=== PATIENT | male | born 1950 | race Caucasian/White ===

== ENCOUNTER 2017-02-21 20:45 | Inpatient (IN) | payer MEDICARE, BC ==
--- NOTE | 2017-02-21 21:03 | EDM.PDOC ---
ED HPI GENERAL MEDICAL PROBLEM - General Chief Complaint: General Stated Complaint: tremors/shaking Time Seen by Provider: 02/21/17 20:59 Source of Information: Reports: Patient, Family History Limitations: Reports: No Limitations - History of Present Illness INITIAL COMMENTS - FREE TEXT/NARRATIVE: Patient brought in by after she saw him have generalized tremor (similar to shaking chills) that lasted a few minutes. Interferred with patient's ambulation. Resolved prior to arrival to ER. She was worried and said that she had never seen him do this before. She also notes that his voice is not quite right. Also complains of patient having harder time making decisions/cognitive impairment that has been present for several months. This worsened over the last few days. She has not noted any other obvious problems. Patient himself says that he feels fine other than having a mild sore throat. ROS performed and patient denied all other problems. Family history significant for high cholesterol with father, and DM with mother. Patient was noted to have increasing blood sugars recently. It is of note that he was placed on Crestor this past summer. No recent dose changes. No new supplements or other medications. Right Knee Pain Score (Numeric/FACES): 2 - Related Data Allergies Allergy/AdvReac Type Severity Reaction Status Date / Time No Known Allergies Allergy Verified 02/21/17 21:13 Past Medical History Cardiovascular History: Reports: High Cholesterol Social & Family History - Family History Cardiac: Reports: High Cholesterol Endocrine/Metabolic: Reports: Diabetes, type II ED ROS GENERAL - Review of Systems Review Of Systems: See Below Constitutional: Reports: No Symptoms. Denies: Fever, Chills, Weakness, Fatigue , Night Sweats, Diaphoresis, Decreased Appetite, Weight Loss, Weight Gain HEENT: Reports: Throat Pain. Denies: Dental Pain, Ear Discharge, Ear Pain, Eye Discharge, Rhinitis, Sinus Problem, Throat Swelling, Vertigo, Vision Change Respiratory: Reports: No Symptoms. Denies: Shortness of Breath, Cough Cardiovascular: Reports: No Symptoms GI/Abdominal: Reports: No Symptoms. Denies: Abdominal Pain, Constipation, Diarrhea, Distension, Nausea, Vomiting : Reports: No Symptoms Musculoskeletal: Reports: No Symptoms Skin: Reports: No Symptoms Neurological: Reports: Other ([place] thought patient appeared a bit unsteady compared to usual. Also noted to have some cognitive decline over the past 2-3 months. ) Psychiatric: Denies: Agitation, Anxiety, Depression, Hallucinations, Homicidal Ideation, Mood Lability, Suicidal Ideation Hematologic/Lymphatic: Reports: No Symptoms ED EXAM, GENERAL - Physical Exam Exam: See Below Exam Limited By: No Limitations General Appearance: Alert, WD/WN, No Apparent Distress Eye Exam: Bilateral Eye: EOMI, PERRL Ears: Normal External Exam, Normal Canal, Hearing Grossly Normal, Normal TMs ( right side TM has mildly erythemic edges. No purulence. ) Nose: Normal Inspection Throat/Mouth: Normal Inspection, Normal Lips, Normal Oropharynx, Normal Voice, No Airway Compromise, Other (Wears partial dentures) Head: Atraumatic, Normocephalic Neck: Normal Inspection, Supple, Non-Tender, Full Range of Motion Respiratory/Chest: No Respiratory Distress, Lungs Clear, Normal Breath Sounds, No Accessory Muscle Use, Chest Non-Tender Cardiovascular: No Murmur, Tachycardia Peripheral Pulses: 2+: Radial (L), Radial (R), Dorsalis Pedis (L), Dorsalis Pedis (R) GI/Abdominal: Normal Bowel Sounds, Soft, Non-Tender, No Organomegaly, No Distention, No Mass (Male) Exam: Deferred Rectal (Males) Exam: Deferred Back Exam: Normal Inspection. No: CVA Tenderness (L), CVA Tenderness (R), Muscle Spasm, Paraspinal Tenderness, Vertebral Tenderness Extremities: Normal Inspection, Normal Range of Motion, Non-Tender, Normal Capillary Refill, Pedal Edema (mild, equal, bilateral) Neurological: Alert, Oriented, Normal Cognition (A&Ox4), No Motor/Sensory Deficits, Other (noted to be somewhat unsteady tranfering. ) Psychiatric: Normal Affect, Normal Mood Skin Exam: Warm, Dry, Intact, Normal Color Course - Vital Signs Last Recorded V/S: Last Vital Signs Temp 37.8 C 02/21/17 20:56 Pulse 113 H 02/21/17 20:56 Resp 22 H 02/21/17 20:56 BP 106/68 02/21/17 20:56 Pulse Ox 92 L 02/21/17 20:56 - Orders/Labs/Meds Orders: Active Orders 24 hr Category Date Time Status Chest 2V [CR] Stat Exams 02/21/17 21:41 Taken Head wo Cont [CT] Stat Exams 02/21/17 22:03 Taken CULTURE BLOOD [BC] Stat Lab 02/21/17 21:20 Received CULTURE BLOOD [BC] Stat Lab 02/21/17 21:44 Received CULTURE STREP A CONFIRMATION [RM] Stat Lab 02/21/17 21:41 Results GLYCOSYLATED HEMOGLOBIN,HGBA1C [CHEM] Stat Lab 02/21/17 22:49 Ordered STREP SCRN A RAPID W CULT CONF [RM] Stat Lab 02/21/17 21:41 Results Sodium Chloride 0.9% [Saline Flush] Med 02/21/17 21:12 Active 10 ml FLUSH ASDIRECTED PRN Blood Culture x2 Reflex Set [OM.PC] Stat Oth 02/21/17 21:13 Ordered Saline Lock Insert [OM.PC] Stat Oth 02/21/17 21:12 Ordered Medication Orders Sodium Chloride (Saline Flush) 10 ml FLUSH ASDIRECTED PRN PRN Reason: Keep Vein Open Labs: Laboratory Tests 02/21/17 02/21/17 02/21/17 Range/Units 21:20 21:20 21:20 WBC 12.3 H (4.0-10.2) K/uL RBC 5.27 (4.33-5.41) M/uL Hgb 15.9 (13.1-16.8) g/dL Hct 46.7 (39.0-49.0) % MCV 88.6 (84.0-98.0) fL MCH 30.2 (28.2-33.3) pg MCHC 34.0 (31.7-36.0) g/dL RDW 13.7 (11.2-14.1) % Plt Count 153 (150-350) K/uL Neut % (Auto) 86.8 H (45.0-80.0) % Lymph % (Auto) 4.3 L (10.0-50.0) % Haines % (Auto) 8.5 (2.0-14.0) % Eos % (Auto) 0.2 (0.0-5.0) % Baso % (Auto) 0.2 (0.0-2.0) % Neut # (Auto) 10.71 H (1.40-7.00) K/uL Lymph # (Auto) 0.53 (0.50-3.50) K/uL Haines # (Auto) 1.05 H (0.00-1.00) K/uL Eos # (Auto) 0.02 (0.00-0.50) K/uL Baso # (Auto) 0.02 (0.00-0.20) K/uL Sodium 139 (136-145) mmol/L Potassium 3.9 (3.5-5.1) mmol/L Chloride 103 (98-107) mmol/L Carbon Dioxide 27.2 (21.0-32.0) mmol/L BUN 17 (7-18) mg/dL Creatinine 0.88 (0.51-1.17) mg/dL Est Cr Clr Drug Dosing 89.13 mL/min Estimated GFR (MDRD) > 60 mL/min Glucose 139 H (74-106) mg/dL Lactic Acid 1.7 (0.4-2.0) mmol/L Calcium 8.7 (8.5-10.1) mg/dL Magnesium 1.5 L (1.8-2.4) mg/dL Total Bilirubin 1.0 (0.2-1.0) mg/dL AST 59 H (15-37) U/L ALT 76 (12-78) U/L Alkaline Phosphatase 94 (46-116) IU/L Creatine Kinase (26-308) U/L Total Protein 6.4 (6.4-8.2) g/dL Albumin 3.6 (3.4-5.0) g/dL Vitamin B12 (193-986) pg/mL Specimen Type Urine Color Urine Appearance Urine pH (5.0-9.0) Ur Specific [place] (1.005-1.030) Urine Protein (NEGATIVE) mg/dL Urine Glucose (UA) (NEGATIVE) mg/dL Urine Ketones (NEGATIVE) mg/dL Urine Occult Blood (NEGATIVE) Urine Nitrite (NEGATIVE) Urine Bilirubin (NEGATIVE) Urine Urobilinogen (0.2-1.0) E.U./dL Ur Leukocyte Esterase (NEGATIVE) Urine RBC /HPF Urine WBC /HPF Ur Epithelial Cells /LPF Urine Bacteria (NONE TO FEW) /HPF Urine Mucus (NEGATIVE) /LPF 02/21/17 02/21/17 Range/Units 21:39 22:10 WBC (4.0-10.2) K/uL RBC (4.33-5.41) M/uL Hgb (13.1-16.8) g/dL Hct (39.0-49.0) % MCV (84.0-98.0) fL MCH (28.2-33.3) pg MCHC (31.7-36.0) g/dL RDW (11.2-14.1) % Plt Count (150-350) K/uL Neut % (Auto) (45.0-80.0) % Lymph % (Auto) (10.0-50.0) % Haines % (Auto) (2.0-14.0) % Eos % (Auto) (0.0-5.0) % Baso % (Auto) (0.0-2.0) % Neut # (Auto) (1.40-7.00) K/uL Lymph # (Auto) (0.50-3.50) K/uL Haines # (Auto) (0.00-1.00) K/uL Eos # (Auto) (0.00-0.50) K/uL Baso # (Auto) (0.00-0.20) K/uL Sodium (136-145) mmol/L Potassium (3.5-5.1) mmol/L Chloride (98-107) mmol/L Carbon Dioxide (21.0-32.0) mmol/L BUN (7-18) mg/dL Creatinine (0.51-1.17) mg/dL Est Cr Clr Drug Dosing mL/min Estimated GFR (MDRD) mL/min Glucose (74-106) mg/dL Lactic Acid (0.4-2.0) mmol/L Calcium (8.5-10.1) mg/dL Magnesium (1.8-2.4) mg/dL Total Bilirubin (0.2-1.0) mg/dL AST (15-37) U/L ALT (12-78) U/L Alkaline Phosphatase (46-116) IU/L Creatine Kinase 160 (26-308) U/L Total Protein (6.4-8.2) g/dL Albumin (3.4-5.0) g/dL Vitamin B12 436 (193-986) pg/mL Specimen Type Urinvoid Urine Color Yellow Urine Appearance Clear Urine pH 5.5 (5.0-9.0) Ur Specific [place] 1.020 (1.005-1.030) Urine Protein Negative (NEGATIVE) mg/dL Urine Glucose (UA) Negative (NEGATIVE) mg/dL Urine Ketones Negative (NEGATIVE) mg/dL Urine Occult Blood Negative (NEGATIVE) Urine Nitrite Negative (NEGATIVE) Urine Bilirubin Negative (NEGATIVE) Urine Urobilinogen 0.2 (0.2-1.0) E.U./dL Ur Leukocyte Esterase Negative (NEGATIVE) Urine RBC 0-5 /HPF Urine WBC 0-5 /HPF Ur Epithelial Cells Few /LPF Urine Bacteria Rare (NONE TO FEW) /HPF Urine Mucus Few H (NEGATIVE) /LPF Meds: Medications Generic Name Dose Route Start Last Admin Trade Name Freq PRN Reason Stop Dose Admin Sodium Chloride 10 ml 02/21/17 21:12 Saline Flush FLUSH ASDIRECTED PRN Keep Vein Open - Radiology Interpretation Free Text/Narrative:: chest xray: no noted acute infiltrates/changes CT Results Date: 02/21/17 CT Results Time: 23:04 (Negative head CT) - Re-Assessments/Exams Free Text/Narrative Re-Assessment/Exam: 02/21/17 22:04 Initial labs drawn. Mild increase in WBC. Exam overall non-focal. CT of head ordered given progressive cognitive changes that have been observed. Vital signs stable, however patient noted to be mildly tachy. O2 sats on room air 92%. Patient denies any respiratory complaints/shortness of breath/chest pain. Long history of smoking. 02/21/17 22:53 Patient admitted for cognitive changes/altered mental status. Cannot rule out other acute process, such as viral illness or other infection given mild elevation of WBC and complaint of sore throat. Rapid strep negative. Magnesium low, glucose mildly elevated. Cannot rule out Crestor as cause of patient's progressive cognitive changes. Episode of shakiness that observed earlier could be due to oncoming illness , however Crestor can also cause musculoskeletal issues. Will have patient DC Crestor at this time. Plan to have PT/OT evaluate patient tomorrow. Will observe for changes over the next few days. Consider MRI imaging tomorrow if space available. Antibiotics not indicated at this time. Departure - Departure Time of Disposition: 22:58 Disposition: Admitted As Inpatient 67 Condition: Good Clinical Impression: Cognitive changes, General unsteadiness, Hyperglycemia, Hypomagnesemia, Former smoker Elevated white blood cell count, unspecified Qualifiers: Leukocytosis type: unspecified Qualified Code(s): D72.829 - Elevated white blood cell count, unspecified - Discharge Information Referrals: Yaneth Loza PA [Primary Care Provider] - Forms: ED Department Discharge - Problem List & Annotations (1) Cognitive changes SNOMED Code(s): 970285222 Code(s): R41.89 - OTH SYMPTOMS AND SIGNS W COGNITIVE FUNCTIONS AND AWARENESS Status: Acute Priority: High Current Visit: Yes Onset Date: Unknown Annotation/Comment:: 2-3 month history of general mild cognitive decline. Uncertain etiology. Negative head CT this evening. Did start Crestor this past summer and this medication has been associated with cognitive problems. Plan to discontinue medication for now. (2) General unsteadiness SNOMED Code(s): 712384082 Code(s): R26.81 - UNSTEADINESS ON FEET Status: Acute Priority: High Current Visit: Yes Annotation/Comment:: Mild unsteadiness. does not feel safe having patient at home. (3) Hyperglycemia SNOMED Code(s): 81509854 Code(s): R73.9 - HYPERGLYCEMIA, UNSPECIFIED Status: Acute Priority: Low Current Visit: Yes Annotation/Comment:: says patient's blood sugars have been creeping up. No formal workup as of yet. Will begin bedside glucose checks as well as order A1c. (4) Hypomagnesemia SNOMED Code(s): 820854699 Code(s): E83.42 - HYPOMAGNESEMIA Status: Acute Priority: Low Current Visit: Yes (5) Elevated white blood cell count, unspecified SNOMED Code(s): 962918419 Code(s): D72.829 - ELEVATED WHITE BLOOD CELL COUNT, UNSPECIFIED Status: Acute Priority: Medium Current Visit: Yes Onset Date: ~02/21/17 Annotation/Comment:: mild elevation at 12.3 increase in neutrophils. Uncertain etiology. Patient may be developing early viral syndrome given mild sore throat. Will observe for changes. Qualifiers: Leukocytosis type: unspecified Qualified Code(s): D72.829 - Elevated white blood cell count, unspecified (6) Former smoker SNOMED Code(s): 6681277 Code(s): Z87.891 - PERSONAL HISTORY OF NICOTINE DEPENDENCE Status: Chronic Priority: Low Current Visit: Yes Annotation/Comment:: Patient suspected to have mild COPD given long smoking history. Will observe for changes and initiate neb treatments while inpatient. - Problem List Review Problem List Initiated/Reviewed/Updated: Yes - My Orders Last 24 Hours: My Active Orders 02/21/17 21:12 Sodium Chloride 0.9% [Saline Flush] 10 ml FLUSH ASDIRECTED PRN Saline Lock Insert [OM.PC] Stat 02/21/17 21:13 Blood Culture x2 Reflex Set [OM.PC] Stat 02/21/17 21:20 CULTURE BLOOD [BC] Stat 02/21/17 21:41 Chest 2V [CR] Stat CULTURE STREP A CONFIRMATION [RM] Stat STREP SCRN A RAPID W CULT CONF [RM] Stat 02/21/17 21:44 CULTURE BLOOD [BC] Stat 02/21/17 22:03 Head wo Cont [CT] Stat 02/21/17 22:49 GLYCOSYLATED HEMOGLOBIN,HGBA1C [CHEM] Stat - Assessment/Plan Admission H&P: Please use this note as an admission H&P Last 24 Hours: My Active Orders 02/21/17 21:12 Sodium Chloride 0.9% [Saline Flush] 10 ml FLUSH ASDIRECTED PRN Saline Lock Insert [OM.PC] Stat 02/21/17 21:13 Blood Culture x2 Reflex Set [OM.PC] Stat 02/21/17 21:20 CULTURE BLOOD [BC] Stat 02/21/17 21:41 Chest 2V [CR] Stat CULTURE STREP A CONFIRMATION [RM] Stat STREP SCRN A RAPID W CULT CONF [RM] Stat 02/21/17 21:44 CULTURE BLOOD [BC] Stat 02/21/17 22:03 Head wo Cont [CT] Stat 02/21/17 22:49 GLYCOSYLATED HEMOGLOBIN,HGBA1C [CHEM] Stat Assessment:: as above Plan: as above
[2017-02-21 21:42] LABS: CHLORIDE,CL 103 mmol/L (98-107); SODIUM,NA 139 mmol/L (136-145)
[2017-02-21] MEDS ORDERED: Acetaminophen 325 MG Tab PO ONE (23:26)
[2017-02-21] MEDS ORDERED: Promethazine 25 MG/ML SDV IM PRN (23:56)
[2017-02-21] MEDS: cefTRIAXone 1 GM in Sodium Chloride 0.9% 100 ML IV SCH (23:56)
[2017-02-21] MEDS ORDERED: Promethazine 25 MG Tab PO PRN (23:56)
[2017-02-21] MEDS ORDERED: Bisacodyl 5 MG Tab PO PRN (23:56)
[2017-02-22] MEDS: Azithromycin 500 MG in Sodium Chloride 0.9% 250 ML IV SCH ×2 (00:01→22:56)
[2017-02-22] MEDS: Albuterol/Ipratropium 3.0-0.5 MG/3 ML Neb Soln NEB SCH ×4 (01:52→20:01)
[2017-02-22] MEDS: Sodium Chloride 0.9% 10 ML Syringe FLUSH PRN ×2 (01:56→22:59)
[2017-02-22] MEDS: Magnesium Oxide 400 MG Tab PO SCH (07:23)
[2017-02-22] MEDS: Enoxaparin 40 MG/0.4 ML Syringe SUBCUT SCH (07:23)
[2017-02-22] MEDS: Acetaminophen 325 MG Tab PO PRN ×2 (07:43→20:07)
[2017-02-22 08:28] LABS: CHLORIDE,CL 103 mmol/L (98-107); SODIUM,NA 138 mmol/L (136-145)
[2017-02-22] MEDS ORDERED: Loperamide 2 MG Tab PO PRN (14:00)
--- NOTE | 2017-02-22 15:01 | PCM.PN ---
- General Info Date of Service: 02/22/17 Admission Dx/Problem (Free Text): Admitted for cognitive changes, general unsteadiness as reported by patient's . Patient himself was without complaint except for mild sore throat. Noted in ER to be mildly tachycardic with WBC 12.3 Suspected probable early viral syndrome. In addition, cognitive changes have been present for several months, with some noted worsening over the previous few days. [place] that there could be link with cognitive changes with being started on Crestor last summer, with possible acute worsening secondary to oncoming infection. Noted to spike temp shortly after being moved from ER to [facility] bed. This was accompanied by lower BP of 95/61, heart rate of 102, respiratory rate of 24, and room O2 sat of 89%. Given the sudden change, IV Rocephin and Zithromax were initiated, along with NC O2 at 2L. No specific pneumonia identified during ER workup. Subjective Update: Patient feels fine and denies having any complaints at this time. Functional Status: Reports: Pain Controlled, Tolerating Diet, Ambulating ( improved today). Denies: New Symptoms Pain Score: 0 - Review of Systems General: Reports: No Symptoms HEENT: Reports: No Symptoms Pulmonary: Reports: No Symptoms Cardiovascular: Reports: No Symptoms Gastrointestinal: Reports: No Symptoms Genitourinary: Reports: No Symptoms Musculoskeletal: Reports: No Symptoms Neurological: Reports: No Symptoms (Denies any acute changes) Psychiatric: Reports: No Symptoms - Patient Data Vitals - Most Recent: Last Vital Signs Temp 37.0 C 02/22/17 11:09 Pulse 88 02/22/17 11:09 Resp 18 02/22/17 11:09 BP 96/77 02/22/17 11:09 Pulse Ox 97 02/22/17 11:09 Weight - Most Recent: 114.714 kg I&O - Last 24 Hours: Intake & Output 02/22/17 02/22/17 02/22/17 06:59 14:59 22:59 Intake Total 590 1170 Output Total 250 Balance 340 1170 Lab Results Last 24 Hours: Laboratory Results - last 24 hr 02/22/17 02/22/17 02/22/17 Range/Units 07:05 07:05 07:05 WBC 14.1 H (4.0-10.2) K/uL RBC 5.00 (4.33-5.41) M/uL Hgb 14.9 (13.1-16.8) g/dL Hct 44.0 (39.0-49.0) % MCV 88.0 (84.0-98.0) fL MCH 29.8 (28.2-33.3) pg MCHC 33.9 (31.7-36.0) g/dL RDW 13.7 (11.2-14.1) % Plt Count 113 L (150-350) K/uL Neut % (Auto) 84.9 H (45.0-80.0) % Lymph % (Auto) 5.4 L (10.0-50.0) % [place] % (Auto) 9.6 (2.0-14.0) % Eos % (Auto) 0.0 (0.0-5.0) % Baso % (Auto) 0.1 (0.0-2.0) % Neut # (Auto) 11.99 H (1.40-7.00) K/uL Lymph # (Auto) 0.77 (0.50-3.50) K/uL [place] # (Auto) 1.36 H (0.00-1.00) K/uL Eos # (Auto) 0.00 (0.00-0.50) K/uL Baso # (Auto) 0.01 (0.00-0.20) K/uL Sodium 138 (136-145) mmol/L Potassium 3.6 (3.5-5.1) mmol/L Chloride 103 (98-107) mmol/L Carbon Dioxide 25.7 (21.0-32.0) mmol/L BUN 13 (7-18) mg/dL Creatinine 0.79 (0.51-1.17) mg/dL Est Cr Clr Drug Dosing 98.88 mL/min Estimated GFR (MDRD) > 60 mL/min Glucose 149 H (74-106) mg/dL POC Glucose (65-110) mg/dl Hemoglobin A1c 6.7 H (4.3-5.7) % Lactic Acid (0.4-2.0) mmol/L Calcium 8.6 (8.5-10.1) mg/dL Total Bilirubin 1.4 H (0.2-1.0) mg/dL AST 49 H (15-37) U/L ALT 79 H (12-78) U/L Alkaline Phosphatase 79 (46-116) IU/L Total Protein 5.9 L (6.4-8.2) g/dL Albumin 3.1 L (3.4-5.0) g/dL 02/22/17 02/22/17 02/22/17 Range/Units 07:05 07:08 11:12 WBC (4.0-10.2) K/uL RBC (4.33-5.41) M/uL Hgb (13.1-16.8) g/dL Hct (39.0-49.0) % MCV (84.0-98.0) fL MCH (28.2-33.3) pg MCHC (31.7-36.0) g/dL RDW (11.2-14.1) % Plt Count (150-350) K/uL Neut % (Auto) (45.0-80.0) % Lymph % (Auto) (10.0-50.0) % [place] % (Auto) (2.0-14.0) % Eos % (Auto) (0.0-5.0) % Baso % (Auto) (0.0-2.0) % Neut # (Auto) (1.40-7.00) K/uL Lymph # (Auto) (0.50-3.50) K/uL [place] # (Auto) (0.00-1.00) K/uL Eos # (Auto) (0.00-0.50) K/uL Baso # (Auto) (0.00-0.20) K/uL Sodium (136-145) mmol/L Potassium (3.5-5.1) mmol/L Chloride (98-107) mmol/L Carbon Dioxide (21.0-32.0) mmol/L BUN (7-18) mg/dL Creatinine (0.51-1.17) mg/dL Est Cr Clr Drug Dosing mL/min Estimated GFR (MDRD) mL/min Glucose (74-106) mg/dL POC Glucose 135 H 96 (65-110) mg/dl Hemoglobin A1c (4.3-5.7) % Lactic Acid 1.5 (0.4-2.0) mmol/L Calcium (8.5-10.1) mg/dL Total Bilirubin (0.2-1.0) mg/dL AST (15-37) U/L ALT (12-78) U/L Alkaline Phosphatase (46-116) IU/L Total Protein (6.4-8.2) g/dL Albumin (3.4-5.0) g/dL Med Orders - Current: Current Medications Acetaminophen (Tylenol) 650 mg PO Q6H PRN PRN Reason: Pain (Mild 1-3)/fever Last Admin: 02/22/17 07:43 Dose: 650 mg Albuterol/Ipratropium (Duoneb 3.0-0.5 Mg/3 Ml) 3 ml NEB Q6HRRT [facility] Last Admin: 02/22/17 13:39 Dose: 3 ml Bisacodyl (Dulcolax) 5 mg PO DAILY PRN PRN Reason: Constipation Coenzyme Q10 (Coenzyme Q10) 100 mg PO DAILY [facility] Last Admin: 02/22/17 07:23 Dose: 100 mg Enoxaparin Sodium (Lovenox) 40 mg SUBCUT DAILY [facility] Last Admin: 02/22/17 07:23 Dose: 40 mg Azithromycin 500 mg/ Sodium (Chloride) 250 mls @ 250 mls/hr IV Q24H [facility] Last Admin: 02/22/17 00:01 Dose: 250 mls/hr Ceftriaxone Sodium 1 gm/ (Sodium Chloride) 100 mls @ 200 mls/hr IV Q24H [facility] Last Admin: 02/21/17 23:56 Dose: 200 mls/hr Loperamide HCl (Imodium Ad) 2 mg PO Q4H PRN PRN Reason: Diarrhea Last Admin: 02/22/17 13:39 Dose: 2 mg Magnesium Oxide (Magnesium Oxide) 400 mg PO DAILY [facility] Last Admin: 02/22/17 07:23 Dose: 400 mg Promethazine HCl (Phenergan) 25 mg PO Q6H PRN PRN Reason: nausea, able to take PO Promethazine HCl (Phenergan) 6.25 mg IM Q6H PRN PRN Reason: Nausea/Vomiting Sodium Chloride (Saline Flush) 10 ml FLUSH ASDIRECTED PRN PRN Reason: Keep Vein Open Last Admin: 02/22/17 01:56 Dose: 10 ml Discontinued Medications Acetaminophen (Tylenol) 650 mg PO NOW ONE Stop: 02/21/17 23:27 Last Admin: 02/21/17 23:56 Dose: 650 mg - Exam Quality Assessment: Supplemental Oxygen General: Alert, Oriented, Cooperative, No Acute Distress HEENT: Pupils Equal, Pupils Reactive, EOMI, Mucous Membr. Moist/[employer] Neck: Supple Lungs: Clear to Auscultation, Normal Respiratory Effort Cardiovascular: Regular Rate, Regular Rhythm GI/Abdominal Exam: Normal Bowel Sounds, Soft, Non-Tender, No Distention (Male) Exam: Deferred Back Exam: Normal Inspection Extremities: Normal Inspection, Normal Range of Motion, Non-Tender, Normal Capillary Refill Peripheral Pulses: 2+: Radial (L), Radial (R) Skin: Warm, Dry, Intact Neurological: No New Focal Deficit Psy/Mental Status: Alert, Normal Affect, Normal Mood, Other (Patient answers all questions appropriately. ) - Problem List & Annotations (1) Cognitive changes SNOMED Code(s): 317711793 Code(s): R41.89 - OTH SYMPTOMS AND SIGNS W COGNITIVE FUNCTIONS AND AWARENESS Status: Acute Priority: High Current Visit: Yes Onset Date: Unknown Annotation/Comment:: 2-3 month history of general mild cognitive decline. Uncertain etiology. Negative head CT this evening. Did start Crestor this past summer and this medication has been associated with cognitive problems. Plan to discontinue medication for now. Noted by nursing staff to not listen when asked to obtain assistance with ambulation and transfers. He did do poorly when showering on own, unable to clean self very well. (2) General unsteadiness SNOMED Code(s): 626666221 Code(s): R26.81 - UNSTEADINESS ON FEET Status: Acute Priority: High Current Visit: Yes Annotation/Comment:: Mild unsteadiness. does not feel safe having patient at home. Improvement noted today per staff (3) Hyperglycemia SNOMED Code(s): 27912978 Code(s): R73.9 - HYPERGLYCEMIA, UNSPECIFIED Status: Acute Priority: Low Current Visit: Yes Annotation/Comment:: Elevated Hgb A1c at 6.7 (4) Hypomagnesemia SNOMED Code(s): 492406828 Code(s): E83.42 - HYPOMAGNESEMIA Status: Acute Priority: Low Current Visit: Yes Annotation/Comment:: On Mag Oxide (5) Elevated white blood cell count, unspecified SNOMED Code(s): 177063278 Code(s): D72.829 - ELEVATED WHITE BLOOD CELL COUNT, UNSPECIFIED Status: Acute Priority: Medium Current Visit: Yes Onset Date: ~02/21/17 Qualifiers: Leukocytosis type: unspecified Qualified Code(s): D72.829 - Elevated white blood cell count, unspecified Annotation/Comment:: Increase to 14.1 today. Uncertain etiology. Patient may have been developing early viral syndrome when evaluated in ER. No other specific changes noted since admission other than observed temp spike last evening. Is being covered with Rocephin and Zithromax. No noted pneumonia on chest xray. It was relayed to us today that patient's now feels ill. No specifics are known, but this may indicate further that patient may be likely experiencing a viral illness. (6) Former smoker SNOMED Code(s): 1542569 Code(s): Z87.891 - PERSONAL HISTORY OF NICOTINE DEPENDENCE Status: Chronic Priority: Low Current Visit: Yes Annotation/Comment:: Patient suspected to have mild COPD given long smoking history. Will observe for changes and initiate neb treatments while inpatient. - Problem List Review Problem List Initiated/Reviewed/Updated: Yes - My Orders Last 24 Hours: My Active Orders 02/21/17 23:00 Azithromycin [Zithromax] 500 mg Sodium Chloride 0.9% [Normal Saline] 250 ml IV Q24H 02/21/17 23:28 RT Aerosol Therapy [RC] 02,08,14,20 02/21/17 23:29 Telemetry Monitoring [Cardiac Monitoring] [RC] Q2HR 02/21/17 23:56 Blood Glucose Check, Bedside [RC] QIDACANDBED Up With Assistance [RC] ASDIRECTED Acetaminophen [Tylenol] 650 mg PO Q6H PRN Bisacodyl [Dulcolax] 5 mg PO DAILY PRN Promethazine [Phenergan] 25 mg PO Q6H PRN Promethazine [Phenergan] 6.25 mg IM Q6H PRN Resuscitation Status Routine 02/22/17 00:00 cefTRIAXone [Rocephin] 1 gm Sodium Chloride 0.9% [Normal Saline] 100 ml IV Q24H 02/22/17 00:02 Patient Status [ADT] Routine Oxygen Therapy [RC] 2300 VTE/DVT Education [RC] PER UNIT ROUTINE Vital Signs [RC] Q4HR 02/22/17 00:03 Intake and Output [RC] QSHIFT Pulse Oximetry [RC] PRN Antiembolic Hose [OM.PC] Per Unit Routine 02/22/17 00:04 Antiembolic Devices [RC] 08,20 02/22/17 02:00 Albuterol/Ipratropium [DuoNeb 3.0-0.5 MG/3 ML] 3 ml NEB Q6HRRT 02/22/17 08:00 Enoxaparin [Lovenox] 40 mg SUBCUT DAILY Magnesium Oxide 400 mg PO DAILY Ubidecarenone [Coenzyme Q10] 100 mg PO DAILY 02/22/17 14:00 Loperamide [Imodium AD] 2 mg PO Q4H PRN 02/22/17 23:56 OT Evaluation and Treatment [CONS] Routine PT Evaluation and Treatment [CONS] Routine 02/23/17 Breakfast [place] [employer] Diet [DIET] - Assessment Assessment:: Fever, unsteadiness, worsening cognition, mild sore throat. Continue to suspect viral cause but patient is being covered with Rocephin and Zithro due to sudden temp spike/hypotenstion/lower sats noted last night. Vital signs have been stable today, patient without complaint and would like to go home. now ill and at home, uncertain what specific symptoms she is experiencing. Total protein, platelets, albumin have decreased, suspect in large part dilutional. Mild increase WBC. AST/ALT very mildly elevated. Cognition issues have been going on for a number of months. Staff agree that there is a feeling that patient is having some level of cognitive impairment based on interactions with patient, even though he answers questions appropriately and is found to be A&O x3. - Plan Plan:: Continue IV antibiotics, PT/OT and observe for additional changes. Suspect patient will need further evaluation as outpatient for cognition issues. Will have case management follow patient. If no additional problems are encountered , and patient is cleared by PT/OT, patient may be discharged home tomorrow with continuation of outpatient antibiotics.
[2017-02-22] MEDS ORDERED: Brimonidine 0.2% Ophth Soln 5 ML Bottle EYEBOTH SCH (18:00)
[2017-02-22] MEDS ORDERED: Timolol Maleate 0.5% Ophth Soln 5 ML Bottle EYEBOTH SCH (18:00)
[2017-02-22] MEDS ORDERED: Iopamidol 755 Mg/ML 100 ML Bottle IVPUSH ONE (19:30)
[2017-02-22] MEDS: Brimonidine 0.2% Ophth Soln 5 ML Bottle EYEBOTH SCH (20:00)
[2017-02-22] MEDS: Timolol Maleate 0.5% Ophth Soln 5 ML Bottle EYEBOTH SCH (20:01)
[2017-02-22] MEDS: cefTRIAXone 1 GM in Sodium Chloride 0.9% 100 ML IV SCH (23:01)
[2017-02-23] MEDS: Albuterol/Ipratropium 3.0-0.5 MG/3 ML Neb Soln NEB SCH ×3 (01:44→13:49)
[2017-02-23] MEDS: Acetaminophen 325 MG Tab PO PRN (04:17)
[2017-02-23 07:40] LABS: CHLORIDE,CL 105 mmol/L (98-107); SODIUM,NA 139 mmol/L (136-145)
[2017-02-23] MEDS ORDERED: Calcium Carbonate/Vitamin D3 1500 MG-400 Units Tab PO SCH (08:00)
[2017-02-23] MEDS: Brimonidine 0.2% Ophth Soln 5 ML Bottle EYEBOTH SCH (08:45)
[2017-02-23] MEDS: Timolol Maleate 0.5% Ophth Soln 5 ML Bottle EYEBOTH SCH (08:46)
[2017-02-23] MEDS: Enoxaparin 40 MG/0.4 ML Syringe SUBCUT SCH (08:46)
[2017-02-23] MEDS: Magnesium Oxide 400 MG Tab PO SCH (08:46)
--- NOTE | 2017-02-23 15:24 | PCM.DCSUM1 ---
Discharge Summary - Hospital Course Brief History: Patient admitted for observed mild increased cognitive changes, episode of shaking chills, sore throat. - Discharge Data Discharge Date: 02/23/17 Discharge Disposition: Home, Self-Care 01 Condition: Good - Discharge Diagnosis/Problem(s) (1) Cognitive changes SNOMED Code(s): 317649070 ICD Code: R41.89 - OTH SYMPTOMS AND SIGNS W COGNITIVE FUNCTIONS AND AWARENESS Status: Acute Priority: High Current Visit: Yes Onset Date: Unknown Problem Details: 2-3 month history of general mild cognitive decline. Uncertain etiology. Negative head CT. Did start Crestor this past summer and this medication has been associated with cognitive problems. Plan to discontinue medication for now. No severe problems noted while inpatient. (2) General unsteadiness SNOMED Code(s): 406859187 ICD Code: R26.81 - UNSTEADINESS ON FEET Status: Acute Priority: High Current Visit: Yes Problem Details: improved. (3) Hyperglycemia SNOMED Code(s): 42926307 ICD Code: R73.9 - HYPERGLYCEMIA, UNSPECIFIED Status: Acute Priority: Low Current Visit: Yes Problem Details: Elevated Hgb A1c at 6.7 (4) Hypomagnesemia SNOMED Code(s): 503329250 ICD Code: E83.42 - HYPOMAGNESEMIA Status: Acute Priority: Low Current Visit: Yes Problem Details: On Mag Oxide (5) Elevated white blood cell count, unspecified SNOMED Code(s): 590643472 ICD Code: D72.829 - ELEVATED WHITE BLOOD CELL COUNT, UNSPECIFIED Status: Acute Priority: Medium Current Visit: Yes Onset Date: ~02/21/17 Problem Details: Has normalized Qualifiers: Leukocytosis type: unspecified Qualified Code(s): D72.829 - Elevated white blood cell count, unspecified (6) Former smoker SNOMED Code(s): 0123459 ICD Code: Z87.891 - PERSONAL HISTORY OF NICOTINE DEPENDENCE Status: Chronic Priority: Low Current Visit: Yes Problem Details: Patient suspected to have mild COPD given long smoking history. Will observe for changes and initiate neb treatments while inpatient. 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 Immediate improvement once he is up and moving, sats return to high 90s. Recommend outpatient sleep study be arranged and consider night time O2. Patient to follow up with primary provider tomorrow to expedite this. - Patient Summary/Data Complications: none Consults: Consultations 02/22/17 15:26 Consult to Care Management [Consult to Case Management] [CONS] Routine 02/22/17 23:56 OT Evaluation and Treatment [CONS] Routine PT Evaluation and Treatment [CONS] Routine Hospital Course: Patient admitted from ER for above complaint. Shortly thereafter developed 103 fever. Was noted to have sats in low 90s. IV antibiotics to cover for potential pneumonia initiated. Patient was without complaint the following day. Noted to have mild elevation WBC. This normalized. ALT/AST began to elevate, as did total Bili. Bili has now normalized but ALT/AST still increased. Suspect due to viral illness patient is suspected to have. Sore throat resolved. It was noted that his developed illness consistent with viral gastroenteritis the morning following patient's admission. Suspect that they likely have a shared illness. Blood sugars persistently elevated. Patient developed loose stools after admission. Patient did show pattern of consistent oxygen desaturation any time he was laying flat sleeping. Sats would dip into 80s at time. This would immediately reverse once he was sitting up/standing and moving about. Sats would then approach 100%. 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 Discussed with patient and that he would benefit from sleep study and may need night time O2 depending on results of study. It was recommended that they schedule this as soon as possible. The reported cognition changes were not noted to be significant while patient observed by staff. Could consider Crestor as well as sleep apnea as possibly contributing towards this complaint. Will discharge patient on outpatient Zithromax to be taken for the next few days. He is to follow up tomorrow with primary provider concerning all of the above. Will need recheck of ALT/ALT within next week or so. Patient is agreeable with plan. - Patient Instructions Diet: Usual Diet as Tolerated Activity: As Tolerated Driving: May Drive Today Showering/Bathing: May Shower Other/Special Instructions: Follow up tomorrow at schedule appointment. 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 Remember to discuss a sleep study at clinic appointment tomorrow. You also need to discuss follow up for elevated AST/ALT labs. Recommend stopping Crestor for several months to see if you feel better cognitively. - Discharge Plan Prescriptions/Med Rec: Azithromycin [Zithromax] 250 mg PO DAILY #3 tablet Magnesium Oxide 400 mg PO DAILY #30 tablet Vitamin D3/Vitamin K2 [D3 + K2 Dots 1,000 Unit] 1 each PO DAILY #90 tab.rapdis Home Medications: Home Meds Brimonidine Tartrate/Timolol [Combigan 0.2%-0.5% Eye Drops] 1 drop EYEBOTH BID 02/22/17 [History] Calcium Carbonate/Vitamin D3 [Calcium 600 + Vit D 200] 1 tab PO DAILY 02/22/17 [ History] Rosuvastatin [Crestor] 10 mg PO BEDTIME 02/22/17 [History] Ubidecarenone [Co Q-10] 100 mg PO DAILY 02/22/17 [History] Azithromycin [Zithromax] 250 mg PO DAILY #3 tablet 02/23/17 [Rx] Magnesium Oxide 400 mg PO DAILY #30 tablet 02/23/17 [Rx] Vitamin D3/Vitamin K2 [D3 + K2 Dots 1,000 Unit] 1 each PO DAILY #90 tab.rapdis 02/23/17 [Rx] Forms: ED Department Discharge Referrals: Yaneth Loza PA [Primary Care Provider] - - Discharge Summary/Plan Comment DC Time >30 min.: No - Patient Data Vitals - Most Recent: Last Vital Signs Temp 36.7 C 02/23/17 11:09 Pulse 79 02/23/17 11:09 Resp 18 02/23/17 08:00 BP 113/64 02/23/17 11:09 Pulse Ox 98 02/23/17 11:10 Weight - Most Recent: 114.714 kg I&O - Last 24 hours: Intake & Output 02/23/17 02/23/17 02/23/17 06:59 14:59 22:59 Intake Total 1260 Balance 1260 Lab Results - Last 24 hrs: Laboratory Results - last 24 hr 02/22/17 02/22/17 02/23/17 Range/Units 07:05 20:19 07:05 WBC (4.0-10.2) K/uL RBC (4.33-5.41) M/uL Hgb (13.1-16.8) g/dL Hct (39.0-49.0) % MCV (84.0-98.0) fL MCH (28.2-33.3) pg MCHC (31.7-36.0) g/dL RDW (11.2-14.1) % Plt Count (150-350) K/uL Neut % (Auto) (45.0-80.0) % Lymph % (Auto) (10.0-50.0) % [place] % (Auto) (2.0-14.0) % Eos % (Auto) (0.0-5.0) % Baso % (Auto) (0.0-2.0) % Neut # (Auto) (1.40-7.00) K/uL Lymph # (Auto) (0.50-3.50) K/uL [place] # (Auto) (0.00-1.00) K/uL Eos # (Auto) (0.00-0.50) K/uL Baso # (Auto) (0.00-0.20) K/uL D-Dimer, Quantitative 708 H (0-400) ng/mL Sodium 139 (136-145) mmol/L Potassium 3.6 (3.5-5.1) mmol/L Chloride 105 (98-107) mmol/L Carbon Dioxide 25.9 (21.0-32.0) mmol/L BUN 10 (7-18) mg/dL Creatinine 0.85 (0.51-1.17) mg/dL Est Cr Clr Drug Dosing 91.90 mL/min Estimated GFR (MDRD) > 60 mL/min Glucose 179 H (74-106) mg/dL POC Glucose 112 H (65-110) mg/dl Calcium 8.4 L (8.5-10.1) mg/dL Total Bilirubin 0.9 (0.2-1.0) mg/dL AST 72 H (15-37) U/L ALT 106 H (12-78) U/L Alkaline Phosphatase 77 (46-116) IU/L Total Protein 5.7 L (6.4-8.2) g/dL Albumin 2.7 L (3.4-5.0) g/dL 02/23/17 02/23/17 02/23/17 Range/Units 07:05 07:08 11:07 WBC 8.1 (4.0-10.2) K/uL RBC 4.72 (4.33-5.41) M/uL Hgb 14.2 (13.1-16.8) g/dL Hct 41.9 (39.0-49.0) % MCV 88.8 (84.0-98.0) fL MCH 30.1 (28.2-33.3) pg MCHC 33.9 (31.7-36.0) g/dL RDW 14.0 (11.2-14.1) % Plt Count 107 L (150-350) K/uL Neut % (Auto) 73.8 (45.0-80.0) % Lymph % (Auto) 14.1 (10.0-50.0) % [place] % (Auto) 11.2 (2.0-14.0) % Eos % (Auto) 0.7 (0.0-5.0) % Baso % (Auto) 0.2 (0.0-2.0) % Neut # (Auto) 5.95 (1.40-7.00) K/uL Lymph # (Auto) 1.14 (0.50-3.50) K/uL [place] # (Auto) 0.90 (0.00-1.00) K/uL Eos # (Auto) 0.06 (0.00-0.50) K/uL Baso # (Auto) 0.02 (0.00-0.20) K/uL D-Dimer, Quantitative (0-400) ng/mL Sodium (136-145) mmol/L Potassium (3.5-5.1) mmol/L Chloride (98-107) mmol/L Carbon Dioxide (21.0-32.0) mmol/L BUN (7-18) mg/dL Creatinine (0.51-1.17) mg/dL Est Cr Clr Drug Dosing mL/min Estimated GFR (MDRD) mL/min Glucose (74-106) mg/dL POC Glucose 150 H 99 (65-110) mg/dl Calcium (8.5-10.1) mg/dL Total Bilirubin (0.2-1.0) mg/dL AST (15-37) U/L ALT (12-78) U/L Alkaline Phosphatase (46-116) IU/L Total Protein (6.4-8.2) g/dL Albumin (3.4-5.0) g/dL Med Orders - Current: Current Medications Acetaminophen (Tylenol) 650 mg PO Q6H PRN PRN Reason: Pain (Mild 1-3)/fever Last Admin: 02/23/17 04:17 Dose: 650 mg Albuterol/Ipratropium (Duoneb 3.0-0.5 Mg/3 Ml) 3 ml NEB Q6HRRT [facility] Last Admin: 02/23/17 13:49 Dose: 3 ml Bisacodyl (Dulcolax) 5 mg PO DAILY PRN PRN Reason: Constipation Brimonidine Tartrate (Alphagan 0.2% Ophth Soln) 0 ml EYEBOTH BID@0800,2000 [facility] Last Admin: 02/23/17 08:45 Dose: 1 drop Calcium Carbonate (Caltrate 600+D 1500 Mg-400 Units) 1 tab PO DAILY [facility] Last Admin: 02/23/17 08:46 Dose: 1 tab Coenzyme Q10 (Coenzyme Q10) 100 mg PO DAILY [facility] Last Admin: 02/23/17 08:46 Dose: 100 mg Enoxaparin Sodium (Lovenox) 40 mg SUBCUT DAILY [facility] Last Admin: 02/23/17 08:46 Dose: 40 mg Azithromycin 500 mg/ Sodium (Chloride) 250 mls @ 250 mls/hr IV Q24H [facility] Last Admin: 02/22/17 22:56 Dose: 250 mls/hr Ceftriaxone Sodium 1 gm/ (Sodium Chloride) 100 mls @ 200 mls/hr IV Q24H [facility] Last Admin: 02/22/17 23:01 Dose: 200 mls/hr Loperamide HCl (Imodium Ad) 2 mg PO Q4H PRN PRN Reason: Diarrhea Last Admin: 02/22/17 13:39 Dose: 2 mg Magnesium Oxide (Magnesium Oxide) 400 mg PO DAILY [facility] Last Admin: 02/23/17 08:46 Dose: 400 mg Promethazine HCl (Phenergan) 25 mg PO Q6H PRN PRN Reason: nausea, able to take PO Promethazine HCl (Phenergan) 6.25 mg IM Q6H PRN PRN Reason: Nausea/Vomiting Sodium Chloride (Saline Flush) 10 ml FLUSH ASDIRECTED PRN PRN Reason: Keep Vein Open Last Admin: 02/22/17 22:59 Dose: 10 ml Timolol Maleate (Timoptic 0.5% Ophth Soln) 0 ml EYEBOTH BID@0800,1999 [facility] Last Admin: 02/23/17 08:46 Dose: 1 drop Discontinued Medications Acetaminophen (Tylenol) 650 mg PO NOW ONE Stop: 02/21/17 23:27 Last Admin: 02/21/17 23:56 Dose: 650 mg Brimonidine Tartrate (Alphagan 0.2% Ophth Soln) 0 ml EYEBOTH BID [facility] Last Admin: 02/23/17 01:48 Dose: Not Given Iopamidol (Isovue-370 (76%)) 100 ml IVPUSH ONETIME ONE Stop: 02/22/17 19:31 Last Admin: 02/22/17 23:00 Dose: 100 ml Timolol Maleate (Timoptic 0.5% Ophth Soln) 0 ml EYEBOTH BID [facility] Last Admin: 02/23/17 01:49 Dose: Not Given *Q Meaningful Use (DIS) - VTE *Q VTE Criteria *Q: - Stroke *Q Stroke Criteria *Q: - AMI *Q AMI Criteria *Q:
== END 2017-02-23 16:15 | disposition home or self-care (01) | DRG 884 ==
LOC: LL.ED 20:45 → LL.MS 23:21 → UNDOADMIN 23:21 → LL.MS 02-22 00:06 → UNDODISIN 02-23 16:15
PROVIDERS: ADMIT Emergency Medicine; ATTEND Emergency Medicine
DX: R41.89 Other symptoms and signs involving cognitive functions and awareness (principal); D72.829 Elevated white blood cell count, unspecified; R26.81 Unsteadiness on feet; R73.9 Hyperglycemia, unspecified; E83.42 Hypomagnesemia; E78.00 Pure hypercholesterolemia, unspecified; Z87.891 Personal history of nicotine dependence; J02.9 Acute pharyngitis, unspecified; G47.34 Idiopathic sleep related nonobstructive alveolar hypoventilation
CPT/HCPCS: 36000; 36415; 70450; 71020; 71275; 80053; 81001; 82550; 82607; 82962; 83036; 83605; 83735; 85025; 85379; 87040; 87081; 87430; 94640; 97110-GP; 97161-GP; 99285; A9270-GY; J0456; J0696; J1650; J7050; Q9967

== ENCOUNTER 2018-06-16 11:35 | Day surgery (SDC) | payer MEDICARE, BC ==
[~2018-06-16 11:35] MED LIST: Lactated Ringers 1,000 ML IV SCH; Sodium Chloride 0.9% 10 ML Syringe FLUSH PRN
[2018-06-16] MEDS ORDERED: Sodium Chloride 0.9% 10 ML Syringe FLUSH PRN ×2 (11:45)
[2018-06-16] MEDS ORDERED: Lactated Ringers 1,000 ML IV SCH ×2 (11:45)
[2018-06-16] MEDS ORDERED: Midazolam 1 MG/ML 2 ML SDV ONE ×2 (13:12→13:18)
[2018-06-16] MEDS ORDERED: Propofol 200 MG/20 ML SDV ONE ×2 (13:12→13:18)
--- NOTE | 2018-06-16 13:14 | PCM.HP ---
H&P History of Present Illness - General Date of Service: 06/16/18 Admit Problem/Dx: Admission Diagnosis/Problem Admission Diagnosis/Problem Colonoscopy Source of Information: Patient, Old Records History Limitations: Reports: No Limitations - History of Present Illness Initial Comments - Free Text/Narative: Here for initial screening colonoscopy, has no symptoms, FH is negative - Related Data Allergies/Adverse Reactions: Allergies Allergy/AdvReac Type Severity Reaction Status Date / Time No Known Allergies Allergy Verified 06/16/18 12:37 Home Medications: Home Meds Aspirin [Ecotrin] 81 mg PO DAILY 06/16/18 [History] FA/Lycopene/Lut/MV,Ca,Iron,Min [Centrum] 1 tab PO DAILY 06/16/18 [History] Timolol Maleate [Timoptic 0.5% Ophth Soln] 1 drop EYEBOTH BID 06/16/18 [History] atorvaSTATin [Lipitor] 20 mg PO BEDTIME 06/16/18 [History] metFORMIN [Glucophage] 1,000 mg PO BID 06/16/18 [History] Past Medical History HEENT History: Reports: Glaucoma Cardiovascular History: Reports: High Cholesterol Respiratory History: Reports: Sleep Apnea Gastrointestinal History: Reports: None, Other (See Below) Other Gastrointestinal History: Abscess perianal Genitourinary History: Reports: None Musculoskeletal History: Reports: Osteoarthritis Neurological History: Reports: None Psychiatric History: Reports: None Endocrine/Metabolic History: Reports: Diabetes, Type II Hematologic History: Reports: None Immunologic History: Reports: None Oncologic (Cancer) History: Reports: None Dermatologic History: Reports: None - Past Surgical History Head Surgeries/Procedures: Reports: None Musculoskeletal Surgical History: Reports: Arthroscopic Knee Social & Family History - Family History Family Medical History: Noncontributory Cardiac: Reports: Heart Failure, High Cholesterol, Hypertension : Reports: Renal Disease/Insufficiency Endocrine/Metabolic: Reports: Diabetes, type II - Tobacco Use Smoking Status *Q: Former Smoker - Caffeine Use Caffeine Use: Reports: Coffee, Soda H&P Review of Systems - Review of Systems: Review Of Systems: ROS reveals no pertinent complaints other than HPI. Exam - Exam Exam: See Below - Vital Signs Vital Signs: Last Vital Signs Temp 97.8 F 06/16/18 12:41 Pulse 51 L 06/16/18 12:41 Resp 20 06/16/18 12:41 BP 102/65 06/16/18 12:41 Pulse Ox 100 06/16/18 12:41 Weight: 114.759 kg - Exam General: Alert, Oriented Lungs: Clear to Auscultation, Normal Respiratory Effort Cardiovascular: Regular Rate, Regular Rhythm GI/Abdominal Exam: Soft, Non-Tender Problem List Initiated/Reviewed/Updated: Yes Orders Last 24hrs: Active Orders 24 hr Category Date Time Status Patient Status [ADT] Routine ADT 06/16/18 11:45 Active Blood Glucose Check, Bedside [RC] ONETIME Care 06/16/18 11:45 Active Peripheral IV Care [RC] . DIRECTED Care 06/16/18 11:45 Active Peripheral IV Care [RC] . DIRECTED Care 06/16/18 11:45 Inactive Verify Patient Consent Obtain [RC] ASDIRECTED Care 06/16/18 11:45 Inactive Verify Patient Consent Obtain [RC] ROUTINE Care 06/16/18 11:45 Active Lactated Ringers [Ringers, Lactated] 1,000 ml Med 06/16/18 11:45 Active IV ASDIRECTED Sodium Chloride 0.9% [Saline Flush] Med 06/16/18 11:45 Active 10 ml FLUSH ASDIRECTED PRN Peripheral IV Insertion Adult [OM.PC] Routine Oth 06/16/18 11:45 Ordered Medication Orders Lactated Ringer's (Ringers, Lactated) 1,000 mls @ 125 mls/hr IV ASDIRECTED [place] Sodium Chloride (Saline Flush) 10 ml FLUSH ASDIRECTED PRN PRN Reason: Keep Vein Open Assessment/Plan Comment:: Colon Screening; ok to proceed Discussed risks and complications; consent obtained
--- NOTE | 2018-06-16 13:49 | PCM.OPNOTE ---
- General Post-Op/Procedure Note Date of Surgery/Procedure: 06/16/18 Operative Procedure(s): Colonoscopy with polypectomy Findings: trans colon polyp Pre Op Diagnosis: Screening Post-Op Diagnosis: Same Anesthesia Technique: MAC Primary Surgeon: Gil Thomas Anesthesia Provider: Divine Bella Complications: None Condition: Good
--- NOTE | 2018-06-16 14:24 | OR ---
Date of Procedure: 06/16/2018 PREOPERATIVE DIAGNOSIS: Colon screening. POSTOPERATIVE DIAGNOSIS: Transverse colon polyp. PROCEDURE: Colonoscopy with polypectomy. ANESTHESIA: IV sedation. PROCEDURE: The patient was brought to the procedure room where he was placed on his left side and IV sedation administered. Digital rectal exam was performed which was normal. Colonoscope was inserted and advanced to the level of the cecum without difficulty. Cecal position was confirmed by identifying the appendiceal lumen and ileocecal valve. Prep was good and surfaces were well visualized. Upon withdrawing the scope, the ascending colon was normal. In the transverse colon was a small 6 mm sessile polyp removed with a hot biopsy forceps and sent for pathology review. The remaining descending and sigmoid colon were normal. Rectum was normal and retroflexion was normal. Air was removed and the scope withdrawn. The patient tolerated the procedure well returned to recovery in stable condition. The patient will follow up with Mita Saeed PA-C, in 1 week for review of pathology report. If the polyp is adenomatous, he should undergo a repeat colonoscopy again in 3 years. If the polyp is hyperplastic, he could wait 10 years until his next colon screening and dictation thank you. ADALID ROJAS MD /[id number]
== END 2018-06-16 14:45 | disposition home or self-care (01) ==
LOC: LL.SDS 11:35
PROVIDERS: ATTEND Surgery
DX: Z12.11 Encounter for screening for malignant neoplasm of colon (principal); D12.3 Benign neoplasm of transverse colon; E11.9 Type 2 diabetes mellitus without complications; E66.9 Obesity, unspecified; Z68.35 Body mass index [BMI] 35.0-35.9, adult; E78.00 Pure hypercholesterolemia, unspecified; G47.33 Obstructive sleep apnea (adult) (pediatric); Z87.891 Personal history of nicotine dependence; Z79.82 Long term (current) use of aspirin; Z79.84 Long term (current) use of oral hypoglycemic drugs; Z79.899 Other long term (current) drug therapy
CPT/HCPCS: 00812; 45384; 82962; J2250; J2704; J7120; 88305

== ENCOUNTER 2023-09-23 11:12 | Day surgery (SDC) | payer MEDICARE, BC ==
[~2023-09-23 11:12] MED LIST changes: -Lactated Ringers 1,000 ML IV SCH; +Midazolam 1 MG/ML 2 ML SDV ONE; +Propofol 200 MG/20 ML SDV ONE; -Sodium Chloride 0.9% 10 ML Syringe FLUSH PRN
[2023-09-23] MEDS ORDERED: Sodium Chloride 0.9% 10 ML Syringe FLUSH PRN (11:15)
[2023-09-23] MEDS: Lactated Ringers 1,000 ML IV SCH (11:37)
[2023-09-23] MEDS ORDERED: Propofol 200 MG/20 ML SDV IVPUSH ONE (12:30)
== END 2023-09-23 13:45 | disposition home or self-care (01) ==
LOC: LL.SDS 11:12
PROVIDERS: ATTEND Surgery
DX: Z12.11 Encounter for screening for malignant neoplasm of colon (principal); D12.2 Benign neoplasm of ascending colon; D12.3 Benign neoplasm of transverse colon; E78.5 Hyperlipidemia, unspecified; E11.9 Type 2 diabetes mellitus without complications; G47.33 Obstructive sleep apnea (adult) (pediatric); Z86.010 Personal history of colon polyps; Z79.84 Long term (current) use of oral hypoglycemic drugs; Z79.899 Other long term (current) drug therapy; Z79.82 Long term (current) use of aspirin; Z87.891 Personal history of nicotine dependence
CPT/HCPCS: 00811; 99100; J2250; J2704; J7120